=== PATIENT | female | born 1995 | race Caucasian/White ===

== ENCOUNTER → 2024-01-25 12:45 | Outpatient (BNV) | payer OTHER, SELFPAY | PROVIDERS: Visit Provider Psychiatry & Neurology Psychiatry | DX: F33.2 Major depressive disorder, recurrent severe without psychotic features (principal); F41.1 Generalized anxiety disorder; F43.10 Post-traumatic stress disorder, unspecified; F42.8 Other obsessive-compulsive disorder; Z86.59 Personal history of other mental and behavioral disorders | CPT/HCPCS: 90792; 99213; 99499 ==

== ENCOUNTER 2024-01-29 09:45 | Outpatient (REF) | payer MEDICAID, SELFPAY ==
--- NOTE | 2024-01-29 09:55 | ECG_ITS ---
Test Reason : QTC Check Blood Pressure : / mmHG Vent. Rate : 076 BPM Atrial Rate : 076 BPM P-R Int : 152 ms QRS Dur : 090 ms QT Int : 402 ms P-R-T Axes : 061 064 031 degrees QTc Int : 452 ms Normal sinus rhythm Normal ECG No previous ECGs available Referred By: Monet Devlin Electronically Signed By:OLLIE TATUM
[2024-01-29 10:22] LABS: MANUAL DIFF FLAG NO
[2024-01-29 10:54] LABS: Basophils Percent Auto 0.2 % (0-2); Eosinophils Percent Auto 0.7 % (0-4); Hematocrit 38.1 % (37.0-47.0); Hemoglobin 12.7 g/dl (12.0-16.0); Imm Gran Abs Auto 0.01 X10*3/uL (0.00-0.03); Imm Gran Pct Auto 0.2 % (0.0-0.4); Lymphocytes Absolute Auto 1.9 X10*3/uL (1.2-4.9); Lymphocytes Percent Auto 32.8 % (20-40); Mean Corpuscular HGB Conc 33.3 g/dl (31.0-35.0); Mean Corpuscular Hemoglobin 30.3 pg (27.0-33.0); Mean Corpuscular Volume 90.9 fL (80.0-98.0); Mean Platelet Volume 11.1 fL (9.4-12.3); Monocytes Absolute Auto 0.4 X10*3/uL (0.1-1.2); Monocytes Percent Auto 7.1 % (2-11); Neutrophils Absolute Auto 3.5 x10*3/uL (2.0-8.3); Platelet Count 176 X10*3/uL (160-400); Red Blood Count 4.19 X10*6/uL (4.20-5.50); Red Cell Distribution Width 12.5 % (11.0-16.0); White Blood Count 5.9 X10*3/uL (4.8-10.8)
[2024-01-29 10:58] LABS: Appearance Urine Clear; Color Urine Yellow; Glucose Urine UA Negative (Negative); Leukocyte Esterase Urine Negative (Negative); Nitrite Urine Negative (Negative); Specific Gravity - Urine <= 1.005 (1.005-1.025); Urine Blood Negative (Negative); Urine Ketones Negative (Negative); Urine Protein Negative (Neg-Trace)
[2024-01-29 11:01] LABS: UPreg QC Valid YES; Urine Pregnancy NEGATIVE (NEGATIVE)
[2024-01-29 11:49] LABS: Erythrocyte Sedimentation Rate 7 MM/HR (0-20)
[2024-01-29 11:51] LABS: Estimated Average Glucose 105 mg/dL; Hemoglobin A1c % 5.3 % (<6.0)
[2024-01-29 11:52] LABS: Alanine Aminotransferase 14 U/L (0-31); Albumin Level 4.3 g/dL (3.5-5.0); Alkaline Phosphatase 48 U/L (39-117); Anion Gap 10 (12-20); Aspartate Amino Transferase 11 U/L (5-31); Bilirubin Total 0.5 mg/dL (0.0-1.0); Blood Urea Nitrogen 8 mg/dL (9-16); C Reactive Protein < 0.10 mg/dL (< or = 0.50); Calcium 9.2 mg/dL (8.4-10.2); Carbon Dioxide 25 mmol/L (22-29); Chloride 108 mmol/L (96-108); Cholesterol 189 mg/dL (<200); Estimated Glomerular Filt Rate > 60; Ferritin 66 ng/mL (10-122); Glucose Fasting 95 mg/dL (60-99); HDL Cholesterol 52 mg/dL (>40); Iron 70 mcg/dL (30-160); LDL Cholesterol Calculated 123 mg/dL (<100); Magnesium 2.2 mg/dL (1.6-2.6); Percent Iron Saturation 28 % (15-50); Potassium 3.8 mmol/L (3.3-5.1); Sodium 139 mmol/L (135-145); Thyroid Stimulating Hormone 1.12 uIU/mL (0.32-4.0); Total Iron Binding Capacity 251 mcg/dL (228-428); Total Protein 7.1 g/dL (6.5-8.0); Triglycerides 71 mg/dL (<150); Unsaturated Iron Binding 181 ug/dL; Vitamin D 25-OH Total 33.4 ng/mL (>30)
[2024-01-29 12:09] LABS: Rheumatoid Factor < 13.0 IU/mL (<15.0); Vitamin B12 758 pg/mL (200-900)
[2024-01-30 17:54] LABS: Homocysteine 4.6 umol/L (<10.4)
[2024-02-01 12:34] LABS: Anti Nuclear Antibody Pattern Nuclear, Homogeneous; Anti Nuclear Antibody Screen POSITIVE (NEGATIVE)
[2024-02-01 16:48] LABS: Cyclic Citrullinated Peptide <16 UNITS
[2024-02-02 12:43] LABS: Vitamin B1 15 nmol/L (8-30)
[2024-02-02 18:03] LABS: Vitamin B6 52.4 ng/mL (2.1-21.7)
== END 2024-01-29 09:46 | disposition home or self-care (01) ==
LOC: HO.LAB 09:45
PROVIDERS: PCP Nurse Practitioner Pediatrics; Visit Provider Psychiatry & Neurology Psychiatry
DX: F33.2 Major depressive disorder, recurrent severe without psychotic features (principal); F90.9 Attention-deficit hyperactivity disorder, unspecified type; F41.1 Generalized anxiety disorder
CPT/HCPCS: 36415; 80053; 80061; 81003; 81025; 82306; 82607; 82728; 82746; 83036; 83090; 83540; 83735; 84207; 84425; 84439; 84443; 85025; 85652; 86038; 86039; 86140; 86200; 86431; 93005

== ENCOUNTER 2024-02-08 12:45 | Outpatient (RCR) | payer OTHER, SELFPAY ==
[2024-01-25 09:51] VITALS: BMI 27.5
[2024-01-25 10:35] VITALS: BP 136/104; PULSE 84; TEMP 36.7
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
--- NOTE | 2024-01-25 15:08 | HO.PHP ---
Client's case has been opened and reviewed in team.
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
--- NOTE | 2024-02-01 10:12 | HO.PHP ---
PHP staff member faxed over a referral to [facility] for Med mangement for . PHP staff member is awaiting a phone call with scheduled appointment dates and times.
--- NOTE | 2024-02-06 11:44 | HO.PHP ---
PHP staff member spoke to Samantha, through [facility] to gather Diane's appointment times for med management. Diane's intake appointment is scheduled for February 13, 2024 at 10 AM with Flower Jimenez via telehealth. Diane has a med provider appointment scheduled for March 11, 2024 at 4 PM with Devante Boyd via telehealth.
[2024-02-06 14:01] VITALS: BP 140/90; PULSE 74
[2024-02-08 10:43] VITALS: BP 130/92; PULSE 82
--- NOTE | 2024-02-08 21:12 | HO.PHPPROGNO ---
Subjective Subjective Date of Service: 02/08/24 Reason For Visit: MDD Interim History: Patient seen for follow-up, anticipating discharge at the end of program today.? Program has been good. I'm doing okay...depends on the day. She reports there is some reduction in social anxiety . Still experiencing some panic symptoms, has experiences 1 or 2 full blown panic attacks since starting PA. She wears earplugs which help with hyperacusis especially in overstimulating environments. She deneis any acute issues or concerns. Denies SI/HI/AH/VH. Medication reviewed. Denies any adverse effects.? Medication Compliance: Yes Side effects from medications: No Attending Groups: Yes Review of Systems Acute medical concerns: No Medical Review of Systems: unchanged Mental Status Exam Mental Status Exam Narrative: Alert, oriented, in no acute distress. Mood anxious, affect constricted. Speech normal.No evidence of thought disorder. Future-oriented, denies any hopelessness or SI. No paranoia or delusional content elicited. No evidence of psychosis. Insight and judgment - fair but adequate. Diagnostics Vital Signs (24Hr): BMI result Body Mass Index 27.5 Assessment & Plan Assessment & Plan (1) MDD (major depressive disorder), recurrent severe, without psychosis: Status: Acute Code(s): F33.2 - Major depressive disorder, recurrent severe without psychotic features (2) CHRISTI (generalized anxiety disorder): Status: Acute Code(s): F41.1 - Generalized anxiety disorder Assessment and Plan: +social anxiety (3) Post traumatic stress disorder (PTSD): Status: Acute Code(s): F43.10 - Post-traumatic stress disorder, unspecified (4) Other obsessive-compulsive disorder: Status: Acute Code(s): F42.8 - Other obsessive-compulsive disorder (5) History of ADHD: Status: Acute Code(s): Z86.59 - Personal history of other mental and behavioral disorders Assessment and Plan: r/o PDD vs ASD Plan Discharge from [facility] Continue regular medications Refills sent to pharmacy Will defer further medication management to outpatient provider *Safety plan reviewed *Discharge diagnoses, treatment course, discharge plan have been reviewed with patient (including medication regime, medication management, potential side effects) as well as treatment rationale were also revisited *Discharge paperwork signed and given to patient, copy sent for scanning to chart Patient educated on: diagnosis and medication risk/benefits Informed Consent: understands Reason for contiued partial hosp. stay Substantial Risk for: stable for discharge Certification I certify that partial hospital treatment is medically necessary due to the symptoms and problems resulting from the patient's mental illness and the failure to treat the patient at the partial hospital level of care would likely result in the patient requiring inpatient psychiatric care which could not be prevented at a less intensive level of care. Total time managing care of this patient today __30__ minutes. Discharge Plan Discharge Attending provider: Monet Devlin Additional Instructions: Diane's intake appointment is scheduled for February 13, 2024 at 10 AM with Flower Jimenez via telehealth. Diane has a med provider appointment scheduled for March 11, 2024 at 4 PM with Devante Boyd via telehealth. Diane has an OP therapist, Jayleen Lubin, through [facility], in which her next scheduled appointment is on February 12, 2024 at 10 AM. Medications: New guanfacine 2 mg tablet extended release 24 hr 2 mg PO QAM Qty: 30 0RF Continued mycophenolate mofetil 500 mg tablet 1,000 mg PO BID multivitamin Tablet 1 tab PO DAILY Rx Instructions: Patient takes OTC. guanfacine 1 mg tablet extended release 24 hr 1 mg PO DAILY Qty: 30 0RF Changed hydroxyzine HCl 25 mg tablet 25 - 50 mg PO BEDTIME PRN (Reason: Anxiety) Qty: 30 0RF No Action prednisolone acetate 1 % drops,suspension 1 drp ophthalmic-Left QID ibuprofen 200 mg Tablet 200 mg PO DAILY PRN (Reason: Pain) Rx Instructions: Patient takes OTC PRN pain. Stand Alone Forms: Patient Portal Discharge page Patient Education: Depression (DC) Print Language: Icelandic
--- NOTE | 2024-02-21 20:39 | PM.EVENT ---
Event Note Date of Service: 02/21/24 Event Note: Request for medication refills, efaxed to pharmacy. Provider appointment on 03/11. Time Spent With Patient Time: Total time managing care of this patient today ____ minutes.
== END 2024-02-08 23:59 | disposition home or self-care (01) ==
LOC: HO.PHPA 12:45
PROVIDERS: Visit Provider Psychiatry & Neurology Psychiatry
DX: F33.2 Major depressive disorder, recurrent severe without psychotic features (principal); F43.10 Post-traumatic stress disorder, unspecified; F41.1 Generalized anxiety disorder; F42.8 Other obsessive-compulsive disorder; Z86.59 Personal history of other mental and behavioral disorders
CPT/HCPCS: 90791; 90853